=== PATIENT | male | born 1995 | race Caucasian/White ===

== ENCOUNTER 2017-10-06 15:05 | Emergency (ER) | payer BC ==
[~2017-10-06] VITALS: Ht 182.9 cm; Wt 80.0 kg
[2017-10-06 16:12] LABS: MEAN CORPUSCULAR HEMOGLOBIN 28.7 pg (27.5-34.5); MEAN CORPUSCULAR HGB CONC 32.9 g/dL (33.2-36.2); MEAN CORPUSCULAR VOLUME 87.1 fL (81-97); MEAN PLATELET VOLUME 7.8 fL (7.4-10.4); PLATELET COUNT 248 x10^3/uL (130-400); RED BLOOD COUNT 5.31 x10^6/uL (4.38-5.82); RED CELL DISTRIBUTION WIDTH 13.8 % (9.4-14.8)
[2017-10-06 16:19] LABS: ALBUMIN 4.6 g/dL (3.4-5.0); ANION GAP 9 mmol/L (5-15); CHLORIDE 103 mmol/L (98-107); SALICYLATE LEVEL < 1.7 mg/dL (2.8-20.0)
[2017-10-06 16:28] LABS: AMPHETAMINE SCREEN, URINE Negative (Negative); BARBITURATE SCREEN, URINE Negative (Negative); BENZODIAZEPINE SCREEN, URINE Negative (Negative); CANNABINOID SCREEN, URINE Positive (Negative); COCAINE SCREEN, URINE Negative (Negative); METHADONE SCREEN, URINE Negative (Negative); OPIATE SCREEN, URINE Negative (Negative)
[2017-10-06 16:40] LABS: ALANINE AMINOTRANSFERASE 35 U/L (12-78); ALKALINE PHOSPHATASE 96 U/L (45-117); BILIRUBIN,TOTAL 1.7 mg/dL (0.2-1.0); CREATININE 0.95 mg/dL (0.7-1.3); TOTAL PROTEIN 8.5 g/dL (6.4-8.2)
[2017-10-06 16:42] LABS: ACETAMINOPHEN < 2 mcg/mL (10-30)
[2017-10-06 16:57] LABS: BASOPHILS # (AUTO) 0.03 x10^3/uL (0-0.1); BASOPHILS % (AUTO) 0 % (0-1); EOSINOPHILS # (AUTO) 0.12 x10^3/uL (0-0.4); EOSINOPHILS % (AUTO) 1 % (1-7); LYMPHOCYTES # (AUTO) 1.92 x10^3/uL (1-3.4); LYMPHOCYTES % (AUTO) 17 % (22-44); MD SCAN; MONOCYTES # (AUTO) 1.69 x10^3/uL (0.2-0.8); MONOCYTES % (AUTO) 15 % (2-9); NEUTROPHILS # (AUTO) 7.33 x10^3/uL (1.8-6.8); NEUTROPHILS % (AUTO) 66 % (42-75)
[2017-10-06 18:18] VITALS: BP 122/81
== END 2017-10-06 18:22 | disposition home or self-care (01) ==
LOC: ED 17:22
DX: S62.364A Nondisplaced fracture of neck of fourth metacarpal bone, right hand, initial encounter for closed fracture (principal); Z79.899 Other long term (current) drug therapy; X58.XXXA Exposure to other specified factors, initial encounter; Y93.89 Activity, other specified; Y92.89 Other specified places as the place of occurrence of the external cause; Y99.8 Other external cause status
CPT/HCPCS: 29125; 36415; 80053; 80307; 80329; 85025; 99285; G0480